=== PATIENT | female | born 1985 | race Two or more races ===

== ENCOUNTER 2021-05-10 17:55 | Inpatient (IN) | payer OTHER ==
[~2021-05-10] VITALS: Ht 160 cm; Wt 67.6 kg
[2021-05-10] MEDS ORDERED: ONDANSETRON HCL 4MG/2ML INJ IV STA (18:30)
[2021-05-10] MEDS ORDERED: MORPHINE SULFATE 4 MG/ML CPJ (NOT FOR IM USE) IV STA (18:30)
[2021-05-10] MEDS ORDERED: SODIUM CHLORIDE 0.9% 1,000 ML IV ONE (18:30)
[2021-05-10 18:56] LABS: BASOPHILS % 0.1 % (0.0-2.0); HEMATOCRIT. 37.4 % (36.0-48.0); HEMOGLOBIN. 13.2 g/dL (12.0-16.0); LYMPHOCYTES % 16.2 % (20.0-50.0); MEAN CORPUSCULAR HEMOGLOBIN 30.5 pg (28.0-32.0); MEAN CORPUSCULAR VOLUME 86.2 fL (81.0-99.0); MEAN PLATELET VOLUME 8.4 fl (7.4-10.4); MONOCYTES % 12.1 % (2.0-8.0); NEUTROPHILS % 71.6 % (40.0-76.0); PLATELET 244 x1000/uL (130-400); RED BLOOD CELL COUNT 4.34 mill/uL (4.2-5.4); RED CELL DISTRIBUTION WIDTH 13.9 % (11.6-14.6)
[2021-05-10 19:03] LABS: CHLORIDE 98 mEq/L (98-107)
[2021-05-10 19:05] LABS: PROTHROMBIN TIME 11.2 sec (9.6-11.0)
[2021-05-10 19:06] LABS: HCG SCREEN NEGATIVE
[2021-05-10 20:30] LABS: CLARITY URINE CLEAR (CLEAR); COLOR URINE YELLOW (YELLOW); KETONES URINE 2+ (NEGATIVE); LEUKOCYTE ESTERASE URINE NEGATIVE (NEGATIVE); NITRITE URINE NEGATIVE (NEGATIVE); OCCULT BLOOD URINE 2+ (NEGATIVE); PH URINE 6.5 (4.5-8.0); PROTEIN URINE 2+ (NEGATIVE); SPECIFIC GRAVITY URINE 1.061 (1.005-1.030); UROBILINOGEN URINE 0.2 E.U./dL (0.2-1.0)
[2021-05-10] MEDS ORDERED: DEXT 5%/0.2% NACL KCL 20MEQ/L 1,000 ML IV ONE (21:00)
[2021-05-10] MEDS ORDERED: KCL 20MEQ/100ML PREMIX 100 ML IV ONE (21:00)
[2021-05-10] MEDS ORDERED: FENTANYL CITRATE/PF 50MCG/ML 2ML VIAL IV ONE (21:00)
[2021-05-10] MEDS ORDERED: POTASSIUM CHLORIDE 20MEQ TABLET SR PO ONE (21:00)
[2021-05-10] MEDS ORDERED: IOHEXOL-300 100 ML BOTTLE ONE (23:26)
[2021-05-11] VITALS (11 sets, daily range): BP systolic 102–125; BP diastolic 62–77
[2021-05-11] MEDS: ONDANSETRON HCL 4MG/2ML INJ IV PRN ×3 (01:40→06:40)
[2021-05-11 06:08] LABS: BASOPHILS % 0.2 % (0.0-2.0); HEMATOCRIT. 35.1 % (36.0-48.0); HEMOGLOBIN. 12.3 g/dL (12.0-16.0); LYMPHOCYTES % 27.4 % (20.0-50.0); MEAN CORPUSCULAR HEMOGLOBIN 30.8 pg (28.0-32.0); MEAN PLATELET VOLUME 8.9 fl (7.4-10.4); MONOCYTES % 11.5 % (2.0-8.0); NEUTROPHILS % 60.9 % (40.0-76.0); PLATELET 219 x1000/uL (130-400); RED CELL DISTRIBUTION WIDTH 14.3 % (11.6-14.6)
[2021-05-11 06:11] LABS: CHLORIDE 104 mEq/L (98-107)
[2021-05-11] MEDS ORDERED: KCL 20MEQ/100ML PREMIX 100 ML IV ONE (06:45)
[2021-05-11] MEDS ORDERED: ACETAMINOPHEN 650MG/20.3ML UDC PO PRN (07:00)
[2021-05-11] MEDS ORDERED: POTASSIUM CHLORIDE INJ 60 MEQ in DEXT 5% WATER 500 ML IV ONE (07:30)
[2021-05-11 17:39] LABS: *AMPHETAMINES SCREEN URINE NEGATIVE (NEGATIVE); *BARBITURATES SCREEN URINE NEGATIVE (NEGATIVE); *BENZODIAZEPINES SCREEN URINE NEGATIVE (NEGATIVE); *COCAINE SCREEN URINE NEGATIVE (NEGATIVE); METHADONE URINE SCREEN NEGATIVE (NEGATIVE); PHENCYCLIDINE URINE SCREEN NEGATIVE (NEGATIVE)
[2021-05-11 17:41] LABS: OPIATES URINE SCREEN PRESUMTIVE POSITIVE (NEGATIVE)
[2021-05-11 17:43] LABS: CANNABINOID URINE SCREEN NEGATIVE (NEGATIVE)
[2021-05-15 10:10] LABS: SACCHAROMYCES CEREVISIAE IGG <20.0 Units (0.0-24.9); SACCHAROMYCES CEREVISIAE IGM <20.0 Units (0.0-24.9)
[2021-05-16 13:11] LABS: ATYPICAL pANCA <1:20 titer (Neg:<1:20)
== END 2021-05-11 21:17 | disposition home or self-care (01) | DRG 249 ==
LOC: ER 21:29 → 5EST 23:09 → EDBEDREQ 23:24 → ENRESERV 23:45 → 8WST 05-11 12:05
PROVIDERS: ADMIT Internal Medicine; ATTEND Internal Medicine
DX: K52.9 Noninfective gastroenteritis and colitis, unspecified (principal); K85.90 Acute pancreatitis without necrosis or infection, unspecified; R65.10 Systemic inflammatory response syndrome (SIRS) of non-infectious origin without acute organ dysfunction; E87.1 Hypo-osmolality and hyponatremia; K76.0 Fatty (change of) liver, not elsewhere classified; D72.819 Decreased white blood cell count, unspecified; E87.6 Hypokalemia
CPT/HCPCS: 36415; 71045; 74177; 80053; 80305; 81003; 83605; 83735; 84132; 84703; 85025; 86256; 86671; 99285; J2270; J2405; J3010; J3480; J7030; J7060; Q9967